=== PATIENT | male | born 1955 | race Caucasian/White ===

== ENCOUNTER → 2018-08-30 | Day surgery (SDC) | payer MEDICARE ==
[~2018-08-30] MED LIST: ASPIRIN81 MG PO; COREG12.5 MG PO; DICYCLOMINE HCL20 MG PO; FERROUS SULFAT325 MG PO; GABAPENTIN400 MG PO; INVOKANA PO; LOSARTAN-HCTZ1 EAC2 PO; MIDAZOLAM HCL 2 MG/2 ML VIAL ONE; OMEPRAZOLE40 MG PO; PROPOFOL IV EMULSION 10 MG/ML 20 ML VIAL ONE; TRESIBA SQ; ULTRAM50 MG PO; VOSEVI PO; Z.0.PLAVIX75 MG
--- OUTSIDE RECORDS SUMMARY | 2018-08-30 12:43 | XMS REPORT | Clinical Summary ---
Author Author [facility] Address Unknown Phone Unavailable Care Team Providers Care Sole Painter Name Role Phone Ronal De León MD PCP Allergies No Known Allergies Current Medications Prescription Sig. Disp. Refills Start End Date Status Date gabapentin (NEURONTIN) Take 300 mg by mouth 2 Active 300 mg capsule (two) times a day. Morning and afternoon (then 600 mg at night) valsartan (DIOVAN) 320 MG Take 320 mg by mouth Active tablet daily. hydroCHLOROthiazide Take 25 mg by mouth Active (HYDRODIURIL) 25 MG daily. tablet ranitidine (ZANTAC) 150 Take 150 mg by mouth 2 Active MG tablet (two) times a day. aspirin (ECOTRIN) 81 MG Take 81 mg by mouth Active enteric coated tablet daily. insulin degludec (TRESIBA Inject 50 Units under the Active FLEXTOUCH U-100) 100 skin nightly. unit/mL (3 mL) insulin pen canagliflozin (INVOKANA) Take 100 mg by mouth Active 100 mg tablet tablet daily. gabapentin (NEURONTIN) Take 600 mg by mouth Active 600 mg tablet nightly. amIODarone (PACERONE) 200 Take 1 tablet (200 mg 60 tablet 0 01/21/20 Active MG tablet total) by mouth 2 (two) 17 times a day. 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, without 01/17/2017 long-term current use of insulin (HCC) Hyperlipidemia associated with type 2 diabetes mellitus (HCC) 01/17/2017 Chronic hepatitis C without hepatic coma (HCC) 01/14/2017 CAD (coronary artery disease) 01/13/2017 S/P CABG x 3 01/13/2017 Metabolic acidosis 01/13/2017 Thrombocytopenia (HCC) 01/13/2017 Postoperative anemia due to acute blood loss 01/13/2017 Cardiac insufficiency following cardiac surgery 01/13/2017 Acute respiratory insufficiency 01/13/2017 Hypertension associated with diabetes (HCC) Immunizations Name Dates Previously Given Next Due INFLUENZA QUAD PF 01/17/2017 Family History Medical History Relation Name Comments Heart disease Father Aneurysm Mother Diabetes Mother Diabetes Paternal Grandmother Relation Name Status Comments Father Mother Paternal Grandmother Social History Tobacco Use Types Packs/Day Years Used Date Current Every Day Smoker Tobacco Cessation: Counseling Given: Yes Alcohol Use Drinks/Week oz/Week Comments Yes 3 pints of beer/day Sex Assigned at Date Recorded Not on file Last Filed Vital Signs Not on file Plan of Treatment Health Maintenance Due Date Last Done Comments DIABETIC RETINAL EYE EXAM 1955 DIABETIC FOOT EXAM 1965 URINE MICROALBUMIN 1965 COLON CANCER SCREENING 2005 SHINGRIX VACCINE (#1) 2005 ZOSTER VACCINE 2015 INFLUENZA VACCINE 05/26/2018 01/17/2017, 09/10/2011, 08/27/2010 Implants Implanted Type Area Sales & Service Associate Device Expiration Model / Identifier Date Serial / Lot Chamber Sgl Maryam Dry Suct 1wy Vlv Surgical N/A: N/A TELEFLEX S 1100 [employer]lt Pedi - [id number] Implants; MEDICAL [id number] / Implanted: 01/13/2017 (Quantity not Expanders; / on file) Extenders; Surgical Wires Chamber Sgl Maryam Dry Suct 1[address] Vlv Surgical N/A: N/A TELEFLEX S 1100 Adlt Pedi - [id number] Implants; MEDICAL [id number] / Implanted: 01/13/2017 (Quantity not Expanders; / on file) Extenders; Surgical Wires Procedures Procedure Name Priority Date/Time Associated Diagnosis Comments TRANSFUSE FRESH FROZEN Routine 06/30/2018 PLASMA 5:31 PM CDT TRANSFUSE PLATELETS Routine 06/30/2018 5:31 PM CDT after 08/29/2017 Results * Transfuse fresh frozen plasma (06/30/2018 5:31 PM) Only the most recent of 2 results within the time period is included. * Transfuse platelets, 1 Units (06/30/2018 5:31 PM) Only the most recent of 2 results within the time period is included. after 08/29/2017 Insurance Payer Benefit Subscriber ID Type Phone Address Plan / Group AETNA AETNA PPO xxxxxxxxxx PPO OPEN CHOICE AETNA AETNA xxxxxxxxxx HMO HMO,POS,EP O, MC/EC MEDICARE MEDICARE xxxxxxxxxx Medicare [place], [place] PART A
--- OUTSIDE RECORDS SUMMARY | 2018-08-30 12:43 | XMS REPORT ---
Author Author [facility] Address Unknown Phone Unavailable Care Team Providers Care Pumping Station Supervisor Name Role Phone Unavailable Unavailable Payers Payer Name Policy Type Policy Number Effective Date Expiration Date Problems This patient has no known problems. Allergies, Adverse Reactions, Alerts Allergy Name Allergy Type Status Severity Reaction(s) Onset Date Inactive Date Treating Clinician Comments No Known Allergies DA Active U 2018-08-08 00:00:00 No Known Allergies DA Active U 2017-05-27 00:00:00 Medications This patient has no known medications.
--- OUTSIDE RECORDS SUMMARY | 2018-08-30 12:43 | XMS REPORT | Clinical Summary ---
Author Author [facility] Address Unknown Phone Unavailable Care Team Providers Care Product Manufacturing Professional Name Role Phone Anna Triplett PCP Unavailable Allergies No Known Allergies Medications End Date Status Medication Sig Dispensed Refills Start Date Active carvedilol (COREG) 12.5 Take 25 mg by 0 MG tablet mouth 2 (two) times daily with breakfast and dinner . Active valsartan-hydrochlorothia Take 1 tablet 0 zide (DIOVAN-HCT) 320-25 by mouth mg per tablet daily. Active gabapentin (NEURONTIN) Take 300 mg 0 300 MG capsule by mouth 3 (three) times daily. Active canagliflozin (INVOKANA) Take 100 mg 0 100 mg Tab by mouth daily. Active traMADol (ULTRAM) 50 mg Take 50 mg by 0 tablet mouth every 6 (six) hours as needed for Pain. Active insulin glargine (LANTUS) Use 10 units 10 mL 0 100 unit/mL injection SC qAM.. 5 Active Problems Problem Noted Date Cellulitis and abscess 07/19/2015 Open wound of lumbar region with complication 06/13/2013 Social History Date Tobacco Use Types Packs/Day Years Used Current Every Day Smoker Smokeless Tobacco: Never Used Comments: 3 cigars a day-x 6 years Sex Assigned at Date Recorded Not on file Industry Job Start Date Occupation Not on file Not on file Not on file Travel End Travel History Travel Start No recent travel history available. Last Filed Vital Signs Not on file Plan of Treatment Not on file Results Not on fileafter 08/29/2017 Insurance Payer Benefit Subscriber ID Type Phone Address Plan / Group BLUE CROSS/BLUE SHIELD BCBS PPO xxxxxxxxxxxx PPO [phone] [address] [place] [address] CHOICE MEDICARE MEDICARE xxxxxxxxxx Medicare PART A Advance Directives For more information, please contact: [address] [address] Date Inactivated Comments Code Status Date Activated 07/24/2015 1:12 PM Full Code 07/19/2015 9:17 PM This code status was determined by: Patient 06/13/2013 3:02 PM All possible means of support, including: cardiac massage, mechanical ventilation, and defibrillation will be used to support life. Code ONE 06/13/2013 7:48 AM
[2018-08-30 13:36] LABS: BASOPHILS # (AUTO) 0.1 (0.0-0.1); BASOPHILS % 0.6 % (0.0-1.0); EOSINOPHILS # (AUTO) 0.3 (0.0-0.4); EOSINOPHILS % 3.2 % (0.0-6.0); HEMATOCRIT 39.7 % (38.2-49.6); HEMOGLOBIN 12.3 g/dL (14.0-18.0); LYMPHOCYTES % 33.1 % (18.0-39.1); MEAN CORPUSCULAR HEMOGLOBIN 26.7 pg (28-32); MEAN CORPUSCULAR VOLUME 86.3 fL (81-99); MONOCYTES % 11.4 % (4.4-11.3); NEUTROPHILS # (AUTO) 4.7 (2.1-6.9); NEUTROPHILS % 51.4 % (38.7-80.0); PLATELET COUNT 149 x10e3/uL (140-360); RED CELL DISTRIBUTION WIDTH 21.4 % (11.7-14.4)
[2018-08-30 14:45] VITALS: BP 131/82
== END | disposition home or self-care (01) ==
LOC: OR 12:40
PROVIDERS: ATTEND Internal Medicine Gastroenterology
DX: D50.9 Iron deficiency anemia, unspecified (principal); D12.2 Benign neoplasm of ascending colon; K57.30 Diverticulosis of large intestine without perforation or abscess without bleeding; K64.8 Other hemorrhoids; K58.9 Irritable bowel syndrome, unspecified; Z71.3 Dietary counseling and surveillance; B18.2 Chronic viral hepatitis C; E66.3 Overweight; I25.810 Atherosclerosis of coronary artery bypass graft(s) without angina pectoris; E11.9 Type 2 diabetes mellitus without complications; I10 Essential (primary) hypertension; Z91.048 Other nonmedicinal substance allergy status; R91.8 Other nonspecific abnormal finding of lung field; F17.200 Nicotine dependence, unspecified, uncomplicated; Z79.82 Long term (current) use of aspirin; Z68.28 Body mass index [BMI] 28.0-28.9, adult; Z95.1 Presence of aortocoronary bypass graft
CPT/HCPCS: 36415; 45385; 82948; 85025; 88305; J2250; J2704

== ENCOUNTER → 2020-11-05 | Day surgery (SDC) | payer MEDICARE ==
[~2020-11-05] MED LIST changes: +ATORVASTATIN CA10 MG PO; +CYCLOBENZAPRINE10 MG PO; +FAMOTIDINE20 MG PO; +FENTANYL CITRATE/PF 100MCG/2 ML INJ ONE; +HYOSCYAMINE 0.125 MG TAB ONE; +LIDOCAINE HCL 2% LOCAL INJ 5 ML SDV VIAL INJ ONE; +TRULICITY1.5 MG/0.5 INJ
[2020-11-05 14:53] VITALS: BP 170/90
[2020-11-05 16:47] LABS: WBC,FECAL (FECAL LACTOFERRIN) NEGATIVE (NEGATIVE)
[2020-11-06 14:17] LABS: C DIFFICILE TOXIN A&B AMP PROB NEGATIVE (NEGATIVE)
== END | disposition home or self-care (01) ==
LOC: OR 11:45
PROVIDERS: ATTEND Internal Medicine Gastroenterology
DX: K52.9 Noninfective gastroenteritis and colitis, unspecified (principal); D12.2 Benign neoplasm of ascending colon; K57.30 Diverticulosis of large intestine without perforation or abscess without bleeding; K62.89 Other specified diseases of anus and rectum; K64.8 Other hemorrhoids; K21.9 Gastro-esophageal reflux disease without esophagitis; I25.810 Atherosclerosis of coronary artery bypass graft(s) without angina pectoris; I44.0 Atrioventricular block, first degree; E11.9 Type 2 diabetes mellitus without complications; I10 Essential (primary) hypertension; F17.290 Nicotine dependence, other tobacco product, uncomplicated; Z01.810 Encounter for preprocedural cardiovascular examination; Z01.812 Encounter for preprocedural laboratory examination; Z20.822 Contact with and (suspected) exposure to COVID-19; Z79.82 Long term (current) use of aspirin; Z79.4 Long term (current) use of insulin; Z95.1 Presence of aortocoronary bypass graft
CPT/HCPCS: 36415; 45380; 45384; 82948; 83630; 83993; 87045; 87177; 87328; 87493; 93005; J2001; J2250; J2704; J3010; U0002; 45378

== ENCOUNTER → 2020-11-28 | Outpatient (CLI) | payer MEDICARE ==
[~2020-11-28] MED LIST changes: -FENTANYL CITRATE/PF 100MCG/2 ML INJ ONE; -HYOSCYAMINE 0.125 MG TAB ONE; -LIDOCAINE HCL 2% LOCAL INJ 5 ML SDV VIAL INJ ONE; -MIDAZOLAM HCL 2 MG/2 ML VIAL ONE; -PROPOFOL IV EMULSION 10 MG/ML 20 ML VIAL ONE
== END ==
LOC: US 09:33
PROVIDERS: ATTEND Internal Medicine Gastroenterology
DX: R19.7 Diarrhea, unspecified (principal); R10.11 Right upper quadrant pain
CPT/HCPCS: 76705; 78227; A9537

== ENCOUNTER → 2020-12-03 | Outpatient (CLI) | payer MEDICARE | LOC: DX 08:45 | PROVIDERS: ATTEND Internal Medicine Gastroenterology | DX: R19.7 Diarrhea, unspecified (principal); R10.11 Right upper quadrant pain; Z11.52 Encounter for screening for COVID-19 | CPT/HCPCS: 74250; U0002 ==

== ENCOUNTER → 2021-01-09 | Day surgery (SDC) | payer MEDICARE ==
[2021-01-07 11:56] LABS: BASOPHILS % 0.3 % (0.0-1.0); EOSINOPHILS # (AUTO) 0.2 (0.0-0.4); EOSINOPHILS % 2.7 % (0.0-6.0); HEMATOCRIT 41.3 % (38.2-49.6); HEMOGLOBIN 13.7 g/dL (14.0-18.0); LYMPHOCYTES # (AUTO) 1.8 (1.0-3.2); LYMPHOCYTES % 30.3 % (18.0-39.1); MEAN CORPUSCULAR HEMOGLOBIN 28.6 pg (28-32); MEAN CORPUSCULAR HGB CONC 33.2 g/dL (31-35); MEAN CORPUSCULAR VOLUME 86.2 fL (81-99); MONOCYTES # (AUTO) 0.6 (0.2-0.8); MONOCYTES % 10.4 % (4.4-11.3); NEUTROPHILS # (AUTO) 3.4 (2.1-6.9); NEUTROPHILS % 56.1 % (38.7-80.0); PLATELET COUNT 98 x10e3/uL (140-360); RED BLOOD COUNT 4.79 x10e6/uL (4.3-5.7); RED CELL DISTRIBUTION WIDTH 13.2 % (11.7-14.4)
[2021-01-07 12:18] LABS: ALANINE AMINOTRANSFERASE 29 IU/L (0-55); ALBUMIN 3.5 g/dL (3.5-5.0); ALKALINE PHOSPHATASE 95 IU/L (40-150); ANION GAP 13.1 mmol/L (8-16); BLOOD UREA NITROGEN 13 mg/dL (7-26); BUN/CREATININE RATIO 14 (6-25); CALCIUM 8.7 mg/dL (8.4-10.2); CARBON DIOXIDE 25 mmol/L (22-29); CHLORIDE 106 mmol/L (98-107); EST GLOMERULAR FILTRATION RATE > 60 ML/MIN (60-); GLUCOSE 134 mg/dL (74-118); POTASSIUM 4.1 mmol/L (3.5-5.1); SODIUM 140 mmol/L (136-145)
[~2021-01-09] MED LIST changes: +BUPIVACAINE 0.25% 30ML SDV ONE; +CARVEDILOL12.5 MG PO; +DEXAMETHASONE SOD PHOS INJ 4 MG/ML VIAL ONE; +FENTANYL CITRATE/PF 100MCG/2 ML INJ ONE; +GABAPENTIN300 MG PO; +GLYCOPYRROLATE INJ 0.2 MG/ML VIAL ONE; +HYDRALAZINE HCL 20 MG/ML VIAL ONE; +HYDROCODONE/APAP 7.5MG-325MG 1 EA TAB ONE; +LIDOCAINE HCL 2% LOCAL INJ 5 ML SDV VIAL INJ ONE; +LOSARTAN POTAS100 MG PO; +MIDAZOLAM HCL 2 MG/2 ML VIAL ONE; +NEOSTIGMINE 1 MG/ML 10ML VIAL ONE; +ONDANSETRON HCL INJ 2MG/ML 2ML 2 MG/ML VIAL ONE; +PROPOFOL IV EMULSION 10 MG/ML 20 ML VIAL ONE; +ROCURONIUM BROMIDE 10 MG/ML 5ML VIAL IV ONE; +SEVOFLURANE INHAL SOLN 250 ML PEN BTL ONE; +TRESIBA100 UNIT/1 SC; +TRULICITY1.5 MG/0.5 IJ
[2021-01-09 07:22] LABS: INR 0.97; PROTHROMBIN TIME 13.5 seconds (11.9-14.5)
[2021-01-09 07:23] LABS: PARTIAL THROMBOPLASTIN TIME 28.3 seconds (23.8-35.5)
[2021-01-09 11:05] VITALS: BP 169/87
== END | disposition home or self-care (01) ==
LOC: OR 06:34
PROVIDERS: ATTEND Surgery
DX: K80.10 Calculus of gallbladder with chronic cholecystitis without obstruction (principal); K82.8 Other specified diseases of gallbladder; Z01.810 Encounter for preprocedural cardiovascular examination; Z01.812 Encounter for preprocedural laboratory examination; Z01.818 Encounter for other preprocedural examination; Z20.822 Contact with and (suspected) exposure to COVID-19; E11.9 Type 2 diabetes mellitus without complications; K21.9 Gastro-esophageal reflux disease without esophagitis; J44.9 Chronic obstructive pulmonary disease, unspecified; I10 Essential (primary) hypertension; Z86.19 Personal history of other infectious and parasitic diseases; F41.9 Anxiety disorder, unspecified; Z95.1 Presence of aortocoronary bypass graft; Z79.82 Long term (current) use of aspirin; Z79.4 Long term (current) use of insulin
CPT/HCPCS: 36415 ×2; 47562; 71046; 80053; 82948; 85025; 85610; 85730; 88304; 93005; C1766; J0360; J1100; J2001; J2250; J2405; J2704; J2710; J3010; U0002

== ENCOUNTER 2022-02-12 11:44 | Inpatient (IN) | payer MEDICARE ==
[~2022-02-12] VITALS: Ht 182.9 cm; Wt 95.3 kg
[~2022-02-12 11:44] MED LIST changes: -BUPIVACAINE 0.25% 30ML SDV ONE; -DEXAMETHASONE SOD PHOS INJ 4 MG/ML VIAL ONE; -FENTANYL CITRATE/PF 100MCG/2 ML INJ ONE; -GLYCOPYRROLATE INJ 0.2 MG/ML VIAL ONE; -HYDRALAZINE HCL 20 MG/ML VIAL ONE; -HYDROCODONE/APAP 7.5MG-325MG 1 EA TAB ONE; -LIDOCAINE HCL 2% LOCAL INJ 5 ML SDV VIAL INJ ONE; -MIDAZOLAM HCL 2 MG/2 ML VIAL ONE; -NEOSTIGMINE 1 MG/ML 10ML VIAL ONE; -ONDANSETRON HCL INJ 2MG/ML 2ML 2 MG/ML VIAL ONE; -PROPOFOL IV EMULSION 10 MG/ML 20 ML VIAL ONE; -ROCURONIUM BROMIDE 10 MG/ML 5ML VIAL IV ONE; -SEVOFLURANE INHAL SOLN 250 ML PEN BTL ONE
[2022-02-12 12:29] LABS: BASOPHILS % 0.4 % (0.0-1.0); EOSINOPHILS # (AUTO) 0.2 (0.0-0.4); EOSINOPHILS % 1.8 % (0.0-6.0); HEMATOCRIT 36.2 % (38.2-49.6); HEMOGLOBIN 11.7 g/dL (14.0-18.0); LYMPHOCYTES # (AUTO) 1.6 (1.0-3.2); LYMPHOCYTES % 18.2 % (18.0-39.1); MEAN CORPUSCULAR HEMOGLOBIN 28.2 pg (28-32); MEAN CORPUSCULAR HGB CONC 32.3 g/dL (31-35); MEAN CORPUSCULAR VOLUME 87.2 fL (81-99); MONOCYTES # (AUTO) 0.8 (0.2-0.8); MONOCYTES % 9.3 % (4.4-11.3); NEUTROPHILS # (AUTO) 6.2 (2.1-6.9); NEUTROPHILS % 70.1 % (38.7-80.0); PLATELET COUNT 125 x10e3/uL (140-360); RED BLOOD COUNT 4.15 x10e6/uL (4.3-5.7); RED CELL DISTRIBUTION WIDTH 14.4 % (11.7-14.4)
[2022-02-12] MEDS ORDERED: ASPIRIN 325 MG TAB PO ONE (12:30)
[2022-02-12 13:42] LABS: ALBUMIN 3.3 g/dL (3.5-5.0); ALBUMIN/GLOBULIN RATIO 0.8 (0.8-2.0); CALCIUM 8.5 mg/dL (8.4-10.2); CREATININE, SERUM 0.84 mg/dL (0.72-1.25)
[2022-02-12] MEDS ORDERED: ONDANSETRON HCL INJ 2MG/ML 2ML 2 MG/ML VIAL IV PRN (13:45)
[2022-02-12] MEDS ORDERED: ASPIRIN 81 MG CHEW TAB PO ONE (13:45)
[2022-02-12] MEDS ORDERED: SODIUM CHLORIDE FLUSH 10 ML SYR INJ PRN (13:45)
[2022-02-12 13:48] LABS: CREATINE KINASE MB 1.9 ng/mL (0-5.0)
[2022-02-12] MEDS: NITROGLYCERIN 0.2 MG/HR PATCH TOP SCH (14:01)
[2022-02-12] MEDS ORDERED: CLOPIDOGREL BISULFATE 75 MG TAB PO ONE (16:30)
[2022-02-12] MEDS ORDERED: ENOXAPARIN SODIUM INJ 100 MG/ML SYR SC STA (16:35)
[2022-02-12] MEDS: CARVEDILOL 12.5 MG TAB PO SCH (18:01)
[2022-02-12 20:29] LABS: CREATINE KINASE MB 1.4 ng/mL (0-5.0)
[2022-02-12] MEDS ORDERED: LORAZEPAM 0.5 MG TAB PO PRN (20:30)
[2022-02-12] MEDS ORDERED: NITROGLYCERIN 0.4 MG SUBL SL PRN (20:30)
[2022-02-12] MEDS ORDERED: Morphine 2mg Syringe 2 MG/ML SYR IV PRN (20:30)
[2022-02-12] MEDS ORDERED: DEXTROSE 50% SYRINGE 50 ML IV PRN (21:30)
[2022-02-12] MEDS ORDERED: INSULIN GLARGINE 100 UNITS/ML VIAL SQ ONE (21:30)
[2022-02-12] MEDS: INSULIN LISPRO 100 UNIT/1 ML 3ML VIAL SQ SCH (22:30)
[2022-02-12] MEDS: ATORVASTATIN 20 MG TAB PO SCH (22:30)
[2022-02-13] VITALS (9 sets, daily range): BP systolic 114–170; BP diastolic 69–107
[2022-02-13 06:12] LABS: BASOPHILS % 0.3 % (0.0-1.0); EOSINOPHILS # (AUTO) 0.2 (0.0-0.4); EOSINOPHILS % 2.4 % (0.0-6.0); HEMATOCRIT 32.7 % (38.2-49.6); HEMOGLOBIN 10.6 g/dL (14.0-18.0); LYMPHOCYTES # (AUTO) 1.4 (1.0-3.2); MEAN CORPUSCULAR HEMOGLOBIN 28.2 pg (28-32); MEAN CORPUSCULAR HGB CONC 32.4 g/dL (31-35); MONOCYTES # (AUTO) 0.6 (0.2-0.8); MONOCYTES % 9.5 % (4.4-11.3); NEUTROPHILS # (AUTO) 4.5 (2.1-6.9); NEUTROPHILS % 66.5 % (38.7-80.0); PLATELET COUNT 106 x10e3/uL (140-360); RED BLOOD COUNT 3.76 x10e6/uL (4.3-5.7); RED CELL DISTRIBUTION WIDTH 13.2 % (11.7-14.4)
[2022-02-13] MEDS: SODIUM CHLORIDE 0.9% 1000ML 1,000 ML IV SCH ×2 (06:15→20:23)
[2022-02-13 07:04] LABS: ALBUMIN 2.9 g/dL (3.5-5.0); ALBUMIN/GLOBULIN RATIO 0.8 (0.8-2.0); ANION GAP 13.4 mmol/L (8-16); CALCIUM 8.3 mg/dL (8.4-10.2); CHOL/HDL RATIO 3.4 (3.9-4.7); CREATININE, SERUM 0.8 mg/dL (0.72-1.25); POTASSIUM 3.4 mmol/L (3.5-5.1)
[2022-02-13 07:09] LABS: THYROID STIMULATING HORMONE 3.535 uIU/mL (0.350-4.940)
[2022-02-13 07:27] LABS: CREATINE KINASE MB 1.1 ng/mL (0-5.0)
[2022-02-13] MEDS: INSULIN LISPRO 100 UNIT/1 ML 3ML VIAL SQ SCH ×4 (07:30→21:26)
[2022-02-13] MEDS ORDERED: POTASSIUM CHLORIDE 20 MEQ TAB CR PO ONE (08:30)
[2022-02-13] MEDS: ASPIRIN 81 MG ENTERIC COATED PO SCH (09:31)
[2022-02-13] MEDS: LOSARTAN POTASSIUM 100 MG TAB PO SCH (09:32)
[2022-02-13] MEDS: CARVEDILOL 12.5 MG TAB PO SCH ×2 (09:32→17:18)
[2022-02-13] MEDS ORDERED: HEPARIN SOD (PORCINE) 1000 UNIT/ML 30ML ONE (10:45)
[2022-02-13] MEDS ORDERED: HEPARIN SOD/SOD CHLORIDE 2,000 ML ONE (10:45)
[2022-02-13] MEDS ORDERED: LIDOCAINE HCL 2% LOCAL 20 ML VIAL ONE (10:45)
[2022-02-13] MEDS ORDERED: SODIUM CHLORIDE 0.9% 1000ML 1,000 ML ONE (10:46)
[2022-02-13] MEDS ORDERED: NITROGLYCERIN/D5W 200 MCG/ML 250 ML ONE (10:46)
[2022-02-13] MEDS ORDERED: MIDAZOLAM HCL 2 MG/2 ML VIAL ONE (10:47)
[2022-02-13] MEDS ORDERED: FENTANYL CITRATE/PF 100MCG/2 ML INJ ONE (10:47)
[2022-02-13] MEDS ORDERED: IOPAMIDOL 370 MG/ML 100 ML INFUS..BTL INJ ONE (11:15)
[2022-02-13] MEDS ORDERED: HYDRALAZINE HCL 20 MG/ML VIAL ONE (11:40)
[2022-02-13] MEDS: NITROGLYCERIN 0.2 MG/HR PATCH TOP SCH (17:19)
[2022-02-13] MEDS: ATORVASTATIN 20 MG TAB PO SCH (21:13)
[2022-02-14] VITALS: BP 149/69
[2022-02-14 00:19] VITALS: BP 149/69
[2022-02-14 03:50] VITALS: BP 156/84
[2022-02-14] MEDS: INSULIN LISPRO 100 UNIT/1 ML 3ML VIAL SQ SCH (07:30)
[2022-02-14 07:41] VITALS: BP 171/100
[2022-02-14 08:36] VITALS: BP 171/100
[2022-02-14] MEDS: ASPIRIN 81 MG ENTERIC COATED PO SCH (09:17)
[2022-02-14] MEDS: LOSARTAN POTASSIUM 100 MG TAB PO SCH (09:17)
[2022-02-14] MEDS ORDERED: ELIQUIS5 MG PO (09:46)
[2022-02-14] MEDS ORDERED: ONDANSETRON HCL 4 MG ORAL DISINTEGRATING TAB PO PRN (10:15)
[2022-02-14] MEDS ORDERED: CARVEDILOL 12.5 MG TAB PO SCH (17:00)
[2022-02-15] MEDS ORDERED: HYDROCHLOROTHIAZIDE 25 MG TAB PO SCH (09:00)
== END 2022-02-14 10:55 | disposition home or self-care (01) | DRG 287 ==
LOC: ER 12:24 → ERHOLD 13:41 → MED/SURG 20:26
PROVIDERS: ADMIT Family Medicine; ATTEND Family Medicine
PROC: 4A023N7 Measurement of Cardiac Sampling and Pressure, Left Heart, Percutaneous Approach (ICD-10-PCS; principal; 2022-02-13)
PROC: B2111ZZ Fluoroscopy of Multiple Coronary Arteries using Low Osmolar Contrast (ICD-10-PCS; 2022-02-13)
PROC: B2151ZZ Fluoroscopy of Left Heart using Low Osmolar Contrast (ICD-10-PCS; 2022-02-13)
DX: I25.110 Atherosclerotic heart disease of native coronary artery with unstable angina pectoris (principal); I50.32 Chronic diastolic (congestive) heart failure; E78.5 Hyperlipidemia, unspecified; J44.9 Chronic obstructive pulmonary disease, unspecified; I48.91 Unspecified atrial fibrillation; Z79.01 Long term (current) use of anticoagulants; Z86.19 Personal history of other infectious and parasitic diseases; E11.42 Type 2 diabetes mellitus with diabetic polyneuropathy; I11.0 Hypertensive heart disease with heart failure; I25.2 Old myocardial infarction; I25.10 Atherosclerotic heart disease of native coronary artery without angina pectoris; Z95.5 Presence of coronary angioplasty implant and graft
CPT/HCPCS: 36415; 71045; 80053; 80061; 80320; 82550; 82553; 82948; 84443; 84484; 85025; 93005; 93306; 93459; 94799; 99152; 99153; 99284; C1766; C1769; C1887; J0360; J1644; J1650; J1815; J2001; J2250; J2270; J3010; J7030; Q9967; U0002

== ENCOUNTER 2022-03-20 11:58 | Emergency (ER) | payer MEDICARE ==
[~2022-03-20] VITALS: Ht 182.9 cm; Wt 95.3 kg
[~2022-03-20 11:58] MED LIST changes: +ELIQUIS5 MG PO
[2022-03-20 12:38] LABS: BASOPHILS % 0.6 % (0.0-1.0); EOSINOPHILS # (AUTO) 0.3 (0.0-0.4); EOSINOPHILS % 4.6 % (0.0-6.0); HEMATOCRIT 28.3 % (38.2-49.6); HEMOGLOBIN 8.7 g/dL (14.0-18.0); LYMPHOCYTES # (AUTO) 1.5 (1.0-3.2); MEAN CORPUSCULAR HGB CONC 30.7 g/dL (31-35); MEAN CORPUSCULAR VOLUME 87.9 fL (81-99); MONOCYTES # (AUTO) 0.6 (0.2-0.8); NEUTROPHILS # (AUTO) 3.1 (2.1-6.9); NEUTROPHILS % 56.4 % (38.7-80.0); PLATELET COUNT 117 x10e3/uL (140-360); RED BLOOD COUNT 3.22 x10e6/uL (4.3-5.7); RED CELL DISTRIBUTION WIDTH 14.2 % (11.7-14.4)
[2022-03-20 13:07] LABS: ALBUMIN 3.3 g/dL (3.5-5.0); ALBUMIN/GLOBULIN RATIO 0.9 (0.8-2.0); ANION GAP 12.8 mmol/L (8-16); CALCIUM 8.5 mg/dL (8.4-10.2); CREATININE, SERUM 1.07 mg/dL (0.72-1.25); POTASSIUM 3.8 mmol/L (3.5-5.1)
[2022-03-20] MEDS ORDERED: FUROSEMIDE INJ 10 MG/ML 4 ML VIAL IV ONE (13:30)
[2022-03-20] MEDS ORDERED: LASIX20 MG PO (13:44)
== END 2022-03-20 14:12 | disposition home or self-care (01) ==
LOC: ER 12:05
DX: R09.89 Other specified symptoms and signs involving the circulatory and respiratory systems (principal); J98.19 Other pulmonary collapse; I25.810 Atherosclerosis of coronary artery bypass graft(s) without angina pectoris; I48.91 Unspecified atrial fibrillation; I10 Essential (primary) hypertension; Z20.822 Contact with and (suspected) exposure to COVID-19; Z79.02 Long term (current) use of antithrombotics/antiplatelets; Z79.4 Long term (current) use of insulin; Z79.899 Other long term (current) drug therapy; Z95.5 Presence of coronary angioplasty implant and graft; Z95.1 Presence of aortocoronary bypass graft
CPT/HCPCS: 36415; 71046; 80053; 83880; 85025; 86850; 86900; 93005; 99284; J1940; U0002